=== PATIENT | female | born 1955 | race Caucasian/White ===

== ENCOUNTER 2022-10-10 06:34 | Emergency (ER) | payer MEDICARE ==
[~2022-10-10] VITALS: Ht 157.5 cm; Wt 53.1 kg
--- NOTE | 2022-10-10 07:30 | NUR ---
Patient arrived c/c headache. A/O x 3
[2022-10-10] MEDS ORDERED: ACETAMINOPHEN ES 500 MG TABLET PO ONE (08:30)
--- NOTE | 2022-10-10 08:41 | NUR ---
TAKEN TO CT VIA ANNETTE
[2022-10-10] MEDS ORDERED: ACETAMINOPHEN ES 500 MG TABLET ONE (09:06)
--- NOTE | 2022-10-10 10:44 | NUR ---
Patient discharged to home in stable condition. Written and verbal after care instructions given. Patient verbalizes understanding of instruction.
[2022-10-10 10:46] VITALS: BP 126/86
== END 2022-10-10 10:46 | disposition home or self-care (01) ==
LOC: ER 06:34
DX: R51.9 Headache, unspecified (principal); G89.29 Other chronic pain; F17.200 Nicotine dependence, unspecified, uncomplicated; Z87.820 Personal history of traumatic brain injury; Z90.49 Acquired absence of other specified parts of digestive tract; Z90.710 Acquired absence of both cervix and uterus; Z88.8 Allergy status to other drugs, medicaments and biological substances
CPT/HCPCS: 70450-TC

== ENCOUNTER 2022-10-29 14:53 | Emergency (ER) | payer MEDICARE, OTHER ==
[~2022-10-29] VITALS: Ht 157.5 cm; Wt 54.4 kg
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
[2022-10-29] MEDS ORDERED: diphenhydrAMINE HCL 50 MG/ML VIAL ONE (15:30)
[2022-10-29] MEDS ORDERED: LORAZEPAM INJ 2 MG/ML VIAL IM ONE (15:30)
[2022-10-29] MEDS ORDERED: diphenhydrAMINE HCL 50 MG/ML VIAL IM ONE (15:30)
[2022-10-29] MEDS ORDERED: HALOPERIDOL LACTATE INJ 5 MG/ML VIAL IM ONE (15:30)
[2022-10-29] MEDS ORDERED: LORAZEPAM INJ 2 MG/ML VIAL ONE (15:31)
[2022-10-29] MEDS ORDERED: HALOPERIDOL LACTATE INJ 5 MG/ML VIAL ONE (15:31)
--- NOTE | 2022-10-29 18:25 | NUR ---
sleeping comfortably , no signs and symptoms of distress.
--- NOTE | 2022-10-29 19:34 | NUR ---
REPORT RECEIVED FROM RN VEE. PATIENT FOR DISCHARGE BUT STILL TOO DROWSY D/T MEDS GIVEN AT ER. PATIENT IS ASLEEP BUT AROUSABLE. -CP, -SOB AND NOT IN CP DISTRESS.
--- NOTE | 2022-10-29 19:42 | NUR ---
Note vinny in EDM - 10/29/22 at 1944 by ARISTIDES PATIENT IS CRYING. IN PAIN AT LUMBAR AREA, WITH SCALE OF 10/10. MADE AWARE
--- NOTE | 2022-10-30 00:01 | NUR ---
PATIENT IS STILL SLEEPING BUT AROUSABLE. TO WEAK TO GET UP AND GO HOME. REQUESTING TO STAY ALITTLE BIT TIL MEDICATION WARES OFF.
--- NOTE | 2022-10-30 05:19 | NUR ---
Patient discharged to home in stable condition. Written and verbal after care instructions given. Patient verbalizes understanding of instruction.
[2022-10-30 05:20] VITALS: BP 137/84
== END 2022-10-30 05:20 | disposition home or self-care (01) ==
LOC: ER 14:56
DX: R46.1 Bizarre personal appearance (principal); Z90.49 Acquired absence of other specified parts of digestive tract; Z90.710 Acquired absence of both cervix and uterus; Z88.8 Allergy status to other drugs, medicaments and biological substances
CPT/HCPCS: 99284; 96372 ×2; J2060; J1200; J1630

== ENCOUNTER 2022-12-28 09:16 | Inpatient (IN) | payer MEDICARE, OTHER ==
[~2022-12-28] VITALS: Ht 162.6 cm; Wt 49.4 kg
--- NOTE | 2022-12-28 09:20 | NUR ---
AAOX3 BIBRA 60 from "tiny home" c/o generalized weakness x 3 days. Skin is warm and non diaphoretic. Placed on the monitor, SPO2=56%, placed on simple mask @ 10L/min. Dr King made aware. Resp is even and unlabored with no apparent distress noted. Awaiting md for eval. Will continuously monitor the patient.
--- NOTE | 2022-12-28 09:37 | NUR ---
Dr King at for eval
--- NOTE | 2022-12-28 09:38 | NUR ---
IV ACCESS ESTABLISHED 18G RIGHT AC. BLOOD DRAWN AND SENT TO LAB
[2022-12-28] MEDS ORDERED: NALOXONE HCL 0.4 MG/ML AMPUL ONE (09:44)
--- NOTE | 2022-12-28 09:51 | NUR ---
URINE SAMPLE COLLECTED AND SENT TO LAB
--- NOTE | 2022-12-28 09:56 | NUR ---
RT AT BEDSIDE FOR ABG
[2022-12-28] MEDS ORDERED: NALOXONE HCL 0.4 MG/ML AMPUL IV ONE (10:00)
[2022-12-28] MEDS ORDERED: IV NS 0.9% 1,000 ML BAG IV ONE (10:00)
[2022-12-28 10:03] LABS: BILIRUBIN,URINE 1+ (NEGATIVE); COLOR,URINE YELLOW (YELLOW); LEUKOCYTE ESTERASE ,URINE 2+ (NEGATIVE); NITRITE, URINE NEGATIVE (NEGATIVE); PH,URINE 5.5 (5.0-8.0); PROTEIN,URINE 1+ mg/dl (NEGATIVE); UGLUCOSE TRACE mg/dL (NEGATIVE)
[2022-12-28 10:09] LABS: ABG BASE EXCESS -7.9 mmol/L; ABG PCO2 26.4 mmHg (35.0-45.0); ABG PH 7.392 (7.350-7.450); ABG PO2 80.8 mmHg (75.0-100.0); COHb 0.3 % (0.5-1.5); MetHb 0.3 % (0.0-1.5); O2Hb 94.3 % (94.0-97.0); SITE, ABG Right Radial; VENT MODE, BG SIMPLE MASK
[2022-12-28 10:27] LABS: CARBON DIOXIDE 20 mmol/L (21-32); CHLORIDE 99 mmol/L (98-107); CREATININE 1.9 mg/dL (0.6-1.3); GLUCOSE 134 mg/dL (74-106); POTASSIUM 4.1 mmol/L (3.5-5.1); SODIUM SERUM 133 mmol/L (136-145); UREA NITROGEN, BLOOD 38 mg/dL (7-18)
[2022-12-28 10:33] LABS: ALANINE AMINOTRANSFERASE 35 U/L (12-78); ALBUMIN 2.5 g/dL (3.4-5.0); ALKALINE PHOSPHATASE 143 U/L (46-116); ASPARTATE AMINOTRANSFERASE 38 U/L (15-37); BILIRUBIN,DIRECT 0.1 mg/dL (0.0-0.2); BILIRUBIN,TOTAL 0.2 mg/dL (0.2-1.0); TOTAL PROTEIN, SERUM 7.4 g/dL (6.4-8.2)
[2022-12-28 10:34] LABS: ALCOHOL, BLOOD < 3 mg/dL (0-0)
[2022-12-28 10:41] LABS: BACTERIA,URINE Moderate /HPF (None Seen); RBC,URINE 0-2 /HPF (0-2); SQUAMOUS EPITHELIAL CELL,UR Few /HPF (None Seen)
--- NOTE | 2022-12-28 10:41 | NUR ---
RETURN FROM CT VIA [facility]
[2022-12-28 10:45] LABS: MEAN CORPUSCULAR HGB CONC 31 g/dl (31.0-36.0)
--- NOTE | 2022-12-28 10:48 | NUR ---
COVID SWAB COLLECTED AND SENT TO LAB
[2022-12-28 10:52] LABS: BASOPHILS # (AUTO) 0.1 K/uL (0.0-0.2); BASOPHILS % (AUTO) 0.5 % (0.0-2.0); EOSINOPHILS % (AUTO) 0.1 % (0.0-6.0); HEMATOCRIT 33 % (33-45); LYMPHOCYTES # (AUTO) 1.6 K/uL (0.8-4.8); LYMPHOCYTES % (AUTO) 6.2 % (20.0-44.0); MEAN CORPUSCULAR VOLUME 80 fL (82-100); MONOCYTES # (AUTO) 0.8 K/uL (0.1-1.30); NEUTROPHILS # (AUTO) 23.4 K/uL (1.8-8.9); NEUTROPHILS % (AUTO) 90.2 % (43.0-81.0); PLATELET COUNT (AUTO) 483 K/uL (150-450); RED BLOOD CELL COUNT(AUTO) 4.05 MIL/uL (4.0-5.2)
[2022-12-28] MEDS: CIPROFLOXACIN IV RTU 400 MG in PREMIX 1 EA IV SCH ×2 (11:00→23:45)
[2022-12-28] MEDS ORDERED: LEVO-148 PO (11:29)
[2022-12-28] MEDS ORDERED: ERGO500093 PO (11:29)
[2022-12-28] MEDS ORDERED: FLUO40CA49 PO (11:29)
[2022-12-28] MEDS ORDERED: OMEP40CA21 PO (11:29)
[2022-12-28] MEDS ORDERED: IOHEXOL-350 100 ML VIAL IV ONE (12:08)
[2022-12-28] MEDS ORDERED: IV NS 0.9% 250 ML IV ONE (12:08)
[2022-12-28] MEDS ORDERED: CT SWABBABLE VALVE TRANS SET 1 EA INFUS.SET MC ONE (12:08)
--- NOTE | 2022-12-28 12:12 | NUR ---
TAKEN TO CT VIA ANNETTE
--- NOTE | 2022-12-28 12:20 | NUR ---
CALLED NURSING SUP REGARDING PT BED
--- NOTE | 2022-12-28 12:22 | NUR ---
RETURNED FROM CT VIA [facility]
--- NOTE | 2022-12-28 14:12 | NUR ---
MRI WILL TAKE PT IN 30 MINS
[2022-12-28 15:26] LABS: THYROID STIMULATING HORMONE 0.444 uIU/mL (0.358-3.74)
--- NOTE | 2022-12-28 15:38 | NUR ---
REPORT GIVEN TO MARIE
--- NOTE | 2022-12-28 15:51 | NUR ---
PT TAKEN TO TELE FLOOR WITH ACLS PROTOCOLS IN PLACE
[2022-12-28 16:00] VITALS: BP 144/93
--- NOTE | 2022-12-28 16:00 | NUR ---
NEW ADMISSION PATIENT ARRIVED VIA STRETCHER FROM ER ON SIMPLE MASK 8 LITERS WITHOUT SOB OR DISTRESS. PATIENT HAS RAC G18 INTACT AND PATENT. SKIN IS INTACT. PATIENT IS ON DIAPER. HAD ONE BOWEL MOVEMENT PATIENT CLEANED AND KEPT DRY. CALL LIGHT WITHIN REACH, BED AT LOWEST POSITION, SIDE RAILS UP X2. WILL CARISA THE PATIENT UNTIL END OF ORIN SHIFT.
[2022-12-28] MEDS: BLOOD SUGAR DIAGNOSTIC 1 EACH STRIP IN SCH ×4 (17:30→23:46)
--- NOTE | 2022-12-28 17:30 | NUR ---
RN CLOSING NOTES PATIENT ON NC 4 LITERS WITHOUT SOB OR DISTRESS. PATIENT HAS RAC G18 INTACT RUNNING HEPARIN DRIP 850 UNITS PER HOUR 17ML/HR; PTT ORDERED FRO 6 HOURSE AFITER I STARTED THE HEPARIN INFUSION THE PTT LAB WILL BE DONE AT 0100. SKIN IS INTACT. PATIENT IS ON DIAPER. HAD ONE BOWEL MOVEMENT PATIENT CLEANED AND KEPT DRY. CALL LIGHT WITHIN REACH, BED AT LOWEST POSITION, SIDE RAILS UP X2. PATIENT ALREADY INDORSED TO [facility] BAG LINER NURSE FOR CARISA.
[2022-12-28] MEDS ORDERED: HEPARIN INFUSION/D5W 500 ML IV PRN (18:00)
[2022-12-28] MEDS ORDERED: HEPARIN SODIUM, PORCINE 5000 UNITS/1 ML VIAL IV ONE (18:00)
--- NOTE | 2022-12-28 19:30 | NUR ---
RN NOTES RECEIVED REPORT FROM MORNING RN. PATIENT IN BED A/O X4 ABLE TO MAKE NEEDS KNOWN. ON OXYGEN INHALATION AT 4 LPM SATING 95% NO SOB NOT ON RESPIRATORY DISTRESS BREATHING EVEN AND UNLABORED. WITH IV ACCESS AT RAC # 18 PATENT FLUSHES WELL NO INFILTRATION NOTED RUNNING HEPARIN 1950 UNITS/HR. NO BLEEDING NOTED. ALL SAFETY MEASURES IN PLACE. HOB ELEVATED. CALL LIGHT WITHIN REACH. WILL CLOSELY MONITOR THE PATIENT
[2022-12-28 20:00] VITALS: BP 137/81
[2022-12-28] MEDS: SIMVASTATIN 20 MG TABLET PO SCH (22:08)
[2022-12-28] MEDS ORDERED: LORAZEPAM 0.5 MG TABLET PO PRN (22:30)
[2022-12-28] MEDS ORDERED: CIPROFLOXACIN IV RTU 200 ML IV ONE (23:42)
[2022-12-29] VITALS: BP 135/90
--- NOTE | 2022-12-29 02:27 | NUR ---
RN NOTES PTT 32.6 PER PROTOCOL GIVE BOLUS 3950 UNITS, INCREASE HEPARIN 4 UNITS/KG/JA=045 UNITS/H 1050 FROM 850. NO BLEEDING NOTED. REPEAT PTT @ 0827 AM.
[2022-12-29] MEDS ORDERED: HEPARIN SODIUM, PORCINE 5000 UNITS/1 ML VIAL IV ONE ×2 (02:30→10:30)
[2022-12-29 04:00] VITALS: BP 135/90
[2022-12-29 05:48] LABS: BASOPHILS % (AUTO) 0.2 % (0.0-2.0); EOSINOPHILS % (AUTO) 0.5 % (0.0-6.0); HEMATOCRIT 28 % (33-45); HEMOGLOBIN 8.9 g/dL (11.5-14.8); LYMPHOCYTES # (AUTO) 1.7 K/uL (0.8-4.8); LYMPHOCYTES % (AUTO) 8.9 % (20.0-44.0); MEAN CORPUSCULAR HGB CONC 32 g/dl (31.0-36.0); MEAN CORPUSCULAR VOLUME 78 fL (82-100); MONOCYTES % (AUTO) 5.4 % (2.0-12.0); NEUTROPHILS # (AUTO) 16.2 K/uL (1.8-8.9); PLATELET COUNT (AUTO) 363 K/uL (150-450); RED BLOOD CELL COUNT(AUTO) 3.63 MIL/uL (4.0-5.2)
[2022-12-29] MEDS: BLOOD SUGAR DIAGNOSTIC 1 EACH STRIP IN SCH ×3 (06:13→17:32)
[2022-12-29 06:18] LABS: CALCIUM, SERUM 8.6 mg/dL (8.5-10.1); CREATININE 0.8 mg/dL (0.6-1.3); POTASSIUM 3.3 mmol/L (3.5-5.1)
--- NOTE | 2022-12-29 06:29 | NUR ---
RN NOTES TROPONIN [address] MOREJON WILL WAIT FOR CALL BACK
--- NOTE | 2022-12-29 07:15 | NUR ---
RN OPEN NOTES RECEIVED REPORT FROM PARTS COUNTER SPECIALIST RN. PATIENT IN BED A/O X4 ABLE TO MAKE NEEDS KNOWN. ON OXYGEN INHALATION AT 4 LPM SATING 95% NO SOB NOT ON RESPIRATORY DISTRESS BREATHING EVEN AND UNLABORED. WITH IV ACCESS AT RAC # 18 PATENT FLUSHES WELL NO INFILTRATION NOTED RUNNING HEPARIN 1050 UNITS/HR. NO BLEEDING NOTED. ALL SAFETY MEASURES IN PLACE. HOB ELEVATED. CALL LIGHT WITHIN REACH. WILL CLOSELY MONITOR THE PATIENT
[2022-12-29] MEDS: LEVOTHYROXINE SODIUM 125 MCG TABLET PO SCH (07:21)
[2022-12-29 08:00] VITALS: BP 126/68
[2022-12-29] MEDS: ASPIRIN EC 325 MG TABLET.DR PO SCH (08:06)
[2022-12-29] MEDS ORDERED: POTASSIUM CHLORIDE 10 MEQ TABLET.SA PO ONE (09:00)
[2022-12-29] MEDS ORDERED: HEPARIN SODIUM,PORCINE/PF 50 UNIT/5 ML DISP.SYRIN IV ONE (10:00)
[2022-12-29] MEDS ORDERED: LORAZEPAM INJ 2 MG/ML VIAL IV ONE ×3 (10:00→14:00)
[2022-12-29] MEDS: APIXABAN 5 MG TABLET PO SCH ×2 (10:31→17:03)
--- NOTE | 2022-12-29 11:13 | NUR ---
"SW Consult: SW consult requested for patient possible homelessness, substance abuse, CVA. Patient brought to the hospital due to pneumonia. Patient presents alert and oriented x3 (self,place,situation). Pt appeared to be somewhat disorganized, however, pt was pleasant and cooperative with this underwriter mortgage loan while conducting the assessment. Pt stated she was brought to the hospital due to having a heart situation and having pneumonia. Pt stated that she is single and has no children. 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 She stated that she is homeless and has been living at [facility]. Pt expressed that she has ADHD. Pt stated that she has been diagnosed with depression. SW assessed for suicidal or homicidal, pt denied. SW assessed any hallucinations visual/auditory, pt denied. SW assessed for substance abuse and pt denied. Pt denied any use of drugs. SW offered pt resources and pt was accepting of shelters and substance abuse referrals. SW conducted PHQ9 documented separately. DC PLAN: Pt would want to return back to [facility] located at [address] [place] [phone]; ([phone]). Substance Abuse resources provided included: [facility] Substance Abuse Self-Helpline ([facility]) ; CRI [facility]LP [address] [facility] [place] [phone] ; [facility] [address] [facility] [address] ; [facility] [address] [facility] [address] ; [facility] [address] ; [facility] 6990 [facility] [address] ; [facility] 909 [facility] [address] ; [facility] Substance Abuse Helpline([facility])-[facility] ; [facility] ; [facility] [place]; [facility] [place]; Cri[facility]Help [place]; [facility] [place]нна; [facility]; [facility] [place]; [facility] [place]; [facility], [facility]. [place]; Alcoholics Anonymous -SFV; Qn-Tkir-Oldiamu ; Marijuana Anonymous -SFV; Narcotics Anonymous www.na.org; Shelters: [facility] [place] Provider: [facility] [place] Address: [address] [place], [address] # of Beds: 47 Population Served: [facility] 6 | [facility] Provider: [facility] Last Address: [address] [place] [address], [facility] # of Beds: 66 Population Served: [facility] Provider: First to Serve Address: [address] [facility], [address] # of Beds: 56 Population Served: [facility] [place] Provider: JOVAN/Ms. Justino Drake Address: [address] [place] [address], [address] # of Beds: 49 Population Served: [facility] 8 | [facility] Provider: First to Serve Address: [address] [facility], [address] # of Beds: 37 Population Served: [facility] Hygiene: [facility]: [address] [facility] [place] ; [facility] [address] [facility] [place] ; [facility] [address] [place] [place] . Food Resources: [place] [facility] at [facility]- [address] [place]; Meet Each Need with Dignity ([facility]) [address] [place]; [facility] Food Pantry 6308 [facility]; [facility] 8580 [facility] [place]. Mental Health resources provided: [facility] [address] [place], [place] [address] ; [facility] [address] [facility] [address], [place], [place] [phone] ; [facility] [address] [facility] [place], [place] [id number] ; [facility] [address] [place], [place] 82[address] Healthcare Clinics: [facility] [address] [facility], [address] [place]. [place] ; [facility] [address] [facility] [address] [place] [address]; [facility] [address] [place] [address] [phone] Counseling--[facility] [address] [facility], [address] [place], [place] [address] (Specializes in in-depth psychotherapy for emotional distress: anxiety, depression, interpersonal conflicts, life transitions, childhood abuse) [facility] [address] [place] [address] (Assist with solving problem marital difficulties, separation & divorce, aging parents, & grief, chronic & terminal illness) [facility] [address] [place] [address] (Deal with loss & grief, anxiety, marital difficulties) Homebound/Mental Health Services [address] [facility], [address] [place], [place] [address] (Provide in-home mental services to people who are incapable of leaving their homes) Organization for Needs of the Elderly Senior Service/Resource Center [address] [place] [address] [facility] [address] [place] [address] PSYCHIATRIC OUTPATIENT SERVICES [facility] Partial Hospitalization and Intensive Outpatient Program (Managed Care and [place] Only)[address] [address] [facility] [phone] [facility] Partial Hospitalization and Outpatient [id number] [place], [place] [phone] [facility] [id number] [place], [place] [phone] [facility] Hospital[facility] Partial Hospitalization and Outpatient [id number] [facility] [place] JjLEDGER, [phone] "
--- NOTE | 2022-12-29 11:23 | NUR ---
Social Work Note/PH9 Post Stroke Depression Screening: radiation control worker met with patient and conducted a PHQ-9 (Post Stroke Depression Screening) in which the patient score of a level of 4 for depression. Patient does not require a psychiatric consult at this time.
--- NOTE | 2022-12-29 11:23 | NUR ---
Social Work Stroke Resources: c iron worker met with patient and provided stroke referrals such as: Stroke Family Warmline at (4-004-1-STROKE) and additional information on caring for a stroke survivor ( ). c iron worker also educated patient on the signs of Stroke and to immediately call 911. c iron worker provided education on the signs of stroke and provided educational packet with information: Dietary food, what stroke is, risks, emotional support, finding support, medical management, and effects of stroke.
[2022-12-29 12:00] VITALS: BP 109/57
[2022-12-29] MEDS ORDERED: ONDANSETRON HCL/PF 4 MG/2 ML VIAL IV PRN (12:00)
--- NOTE | 2022-12-29 13:50 | NUR ---
RN NOTE 10 AM ATIVAL WASENT ADMINISTRED DUE TO PATIENT NEEDED IT PRIOR TO MRI .MRI WAS POSTPONE TILL 2 PM
[2022-12-29 16:00] VITALS: BP 128/84
[2022-12-29] MEDS: ENSURE ENLIVE CHOC 237 ML CAN PO SCH (17:23)
--- NOTE | 2022-12-29 18:35 | NUR ---
RN CLOSING NOTES PATIENT ON NC 4 LITERS WITHOUT SOB OR DISTRESS. PATIENT HAS RAC G18 INTACT .HEPARIN WAS INDUSED , PATIENT STARTED ON ELIQUIS ORALLY PATIENT IS ON DIAPER. HAD ONE BOWEL MOVEMENT PATIENT CLEANED AND KEPT DRY. SPEECH EVAL WAS DONE , PATIENR PASSED AND PLACED ON CARDIAC SOFT DIET .ALL MEDICATIONS WERE ADMINISTRED , ALL NEEDS WERE MET CALL LIGHT WITHIN REACH, BED AT LOWEST POSITION, SIDE RAILS UP X2. PATIENT ALREADY INDORSED TO TE FITTING ROOM CHECKER NURSE FOR CARISA.
--- NOTE | 2022-12-29 19:25 | NUR ---
RN NOTES RECEIVED REPORT FROM MORNING RN. PATIENT IN BED A/O X4 ABLE TO MAKE NEEDS KNOWN. ON OXYGEN INHALATION AT 4 LPM SATING 95% NO SOB NOT ON RESPIRATORY DISTRESS BREATHING EVEN AND UNLABORED. WITH IV ACCESS AT RAC # 18 PATENT FLUSHES WELL NO INFILTRATION NOTED . ALL SAFETY MEASURES IN PLACE. HOB ELEVATED. CALL LIGHT WITHIN REACH. WILL CLOSELY MONITOR THE PATIENT
[2022-12-29 20:00] VITALS: BP 121/74
[2022-12-29] MEDS: SIMVASTATIN 20 MG TABLET PO SCH (21:19)
[2022-12-29] MEDS: METOCLOPRAMIDE HCL 10 MG/2 ML VIAL IV SCH (21:19)
[2022-12-30] VITALS: BP 116/74
[2022-12-30] MEDS: BLOOD SUGAR DIAGNOSTIC 1 EACH STRIP IN SCH ×5 (00:32→22:07)
[2022-12-30 04:00] VITALS: BP 115/71
[2022-12-30] MEDS: METOCLOPRAMIDE HCL 10 MG/2 ML VIAL IV SCH ×3 (05:42→21:09)
--- NOTE | 2022-12-30 06:45 | NUR ---
RN NOTES PATIENT REMAINS STABLE NO SIGNIFICANT CHANGES. ALL DUE MEDS GIVEN ORDERED. KEPT CLEAN AND DRY AT ALL TIMES. WILL ENDORSED TO MORNING SHIFT FOR CARISA
[2022-12-30 07:07] LABS: BASOPHILS % (AUTO) 0.1 % (0.0-2.0); EOSINOPHILS % (AUTO) 0.1 % (0.0-6.0); HEMATOCRIT 30 % (33-45); HEMOGLOBIN 9.2 g/dL (11.5-14.8); LYMPHOCYTES # (AUTO) 1.3 K/uL (0.8-4.8); LYMPHOCYTES % (AUTO) 7.8 % (20.0-44.0); MEAN CORPUSCULAR HGB CONC 31 g/dl (31.0-36.0); MEAN CORPUSCULAR VOLUME 79 fL (82-100); MONOCYTES # (AUTO) 1.2 K/uL (0.1-1.30); MONOCYTES % (AUTO) 7.6 % (2.0-12.0); NEUTROPHILS # (AUTO) 13.7 K/uL (1.8-8.9); NEUTROPHILS % (AUTO) 84.4 % (43.0-81.0); PLATELET COUNT (AUTO) 351 K/uL (150-450); RED BLOOD CELL COUNT(AUTO) 3.78 MIL/uL (4.0-5.2); WHITE BLOOD COUNT (AUTO) 16.2 K/uL (4.3-11.0)
--- NOTE | 2022-12-30 07:14 | NUR ---
RN OPEN NOTES PATIENT IN BED SLEEPING ON NC 4 LITERS WITHOUT SOB OR DISTRESS. PATIENT HAS RAC G18 INTACT TKO RUNNING AT 10ML/HR, SR ON MONITOR CALL LIGHT WITHIN REACH, BED AT LOWEST POSITION, SIDE RAILS UP X2. WILL CONTINUE TO MONITOR AND FALLOW POC
[2022-12-30 07:19] LABS: CALCIUM, SERUM 8.8 mg/dL (8.5-10.1); CREATININE 0.6 mg/dL (0.6-1.3); POTASSIUM 3.6 mmol/L (3.5-5.1)
[2022-12-30] MEDS: LEVOTHYROXINE SODIUM 125 MCG TABLET PO SCH (07:19)
[2022-12-30 08:00] VITALS: BP 112/74
[2022-12-30] MEDS: ENSURE ENLIVE CHOC 237 ML CAN PO SCH ×2 (08:00→17:02)
[2022-12-30] MEDS: ASPIRIN EC 325 MG TABLET.DR PO SCH (08:42)
[2022-12-30] MEDS: APIXABAN 5 MG TABLET PO SCH ×2 (08:43→16:13)
[2022-12-30 12:00] VITALS: BP 118/78
[2022-12-30 16:00] VITALS: BP 110/63
--- NOTE | 2022-12-30 18:33 | NUR ---
RN CLOSING NOTES PATIENT ON NC 3 LITERS WITHOUT SOB OR DISTRESS. PATIENT HAS R FORE ARM 22 G INTACT KEPT CLEANED AND KEPT DRY. ABLE TO AMBULATE TO THE BEDSIDE COMMODE SPEECH EVAL ALL MEDICATIONS WERE ADMINISTERED , ALL NEEDS WERE MET CALL LIGHT WITHIN REACH, BED AT LOWEST POSITION, SIDE RAILS UP X2. WILL ENDORSE TO THE WATER TREATMENT PLANT MECHANIC NURSE FOR CARISA.
[2022-12-30 20:00] VITALS: BP 99/56
[2022-12-30] MEDS: SIMVASTATIN 20 MG TABLET PO SCH (21:08)
[2022-12-30] MEDS ORDERED: INSULIN REGULAR, HUMAN 100 UNIT/ML 3 ML VIAL SQ PRN (21:30)
[2022-12-30] MEDS ORDERED: DEXTROSE 50%-WATER 50 ML DISP.SYRIN IV PRN (21:30)
[2022-12-31] VITALS: BP 122/77
[2022-12-31 04:00] VITALS: BP 120/77
[2022-12-31] MEDS: METOCLOPRAMIDE HCL 10 MG/2 ML VIAL IV SCH ×3 (05:35→21:14)
[2022-12-31 05:59] LABS: BASOPHILS % (AUTO) 0.2 % (0.0-2.0); EOSINOPHILS % (AUTO) 0.4 % (0.0-6.0); HEMATOCRIT 29 % (33-45); HEMOGLOBIN 8.9 g/dL (11.5-14.8); LYMPHOCYTES # (AUTO) 1.5 K/uL (0.8-4.8); LYMPHOCYTES % (AUTO) 9.1 % (20.0-44.0); MEAN CORPUSCULAR HGB CONC 31 g/dl (31.0-36.0); MEAN CORPUSCULAR VOLUME 78 fL (82-100); MONOCYTES # (AUTO) 1.3 K/uL (0.1-1.30); MONOCYTES % (AUTO) 7.7 % (2.0-12.0); NEUTROPHILS # (AUTO) 14.1 K/uL (1.8-8.9); NEUTROPHILS % (AUTO) 82.6 % (43.0-81.0); PLATELET COUNT (AUTO) 385 K/uL (150-450); RED BLOOD CELL COUNT(AUTO) 3.68 MIL/uL (4.0-5.2)
[2022-12-31 06:26] LABS: CALCIUM, SERUM 8.9 mg/dL (8.5-10.1); CREATININE 0.5 mg/dL (0.6-1.3); MAGNESIUM 1.9 mg/dL (1.8-2.4); PHOSPHORUS 3.7 mg/dL (2.5-4.9); POTASSIUM 3.4 mmol/L (3.5-5.1)
--- NOTE | 2022-12-31 07:40 | NUR ---
RN OPENING NOTES RECEIVED PATIENT IN BED A/O X4 ABLE TO MAKE NEEDS KNOWN. ON OXYGEN INHALATION AT 3 LPM SATING 98% NO SOB NOT ON RESPIRATORY DISTRESS BREATHING EVEN AND UNLABORED. WITH IV ACCESS AT RFA # 22 PATENT FLUSHES WELL NO INFILTRATION NOTED . ALL SAFETY MEASURES IN PLACE. HOB ELEVATED. CALL LIGHT WITHIN REACH. WILL CLOSELY MONITOR THE PATIENT
[2022-12-31] MEDS: BLOOD SUGAR DIAGNOSTIC 1 EACH STRIP IN SCH ×4 (08:20→22:08)
[2022-12-31] MEDS: ENSURE ENLIVE CHOC 237 ML CAN PO SCH ×2 (08:24→16:54)
[2022-12-31] MEDS: LEVOTHYROXINE SODIUM 125 MCG TABLET PO SCH (08:24)
[2022-12-31] MEDS: ASPIRIN EC 325 MG TABLET.DR PO SCH (09:12)
[2022-12-31] MEDS: APIXABAN 5 MG TABLET PO SCH ×2 (09:26→16:20)
[2022-12-31] MEDS ORDERED: POTASSIUM CHLORIDE 20 MEQ TAB.PRT.SR PO SCH (10:00)
[2022-12-31 11:07] VITALS: BP 116/62
[2022-12-31 13:08] VITALS: BP 121/75
[2022-12-31] MEDS ORDERED: ACETAMINOPHEN 325 MG TABLET PO PRN (16:00)
[2022-12-31 16:10] VITALS: BP 122/78
--- NOTE | 2022-12-31 18:30 | NUR ---
RN CLOSING NOTES PATIENT IN BED A/O X4 ABLE TO MAKE NEEDS KNOWN. ON OXYGEN INHALATION AT 2LPM SATING 96% NO SOB NOT ON RESPIRATORY DISTRESS BREATHING EVEN AND UNLABORED. ON TELE MONITOR WITH CURRENT READING SR 66, WITH IV ACCESS AT RFA #22 SL. CARE RENDERED, DUE MEDS GIVEN. NO SIGNIFICANT CHANGES NOTED ALL THROUGHOUT THE SHIFT. DENIES PAIN/DISCOMFORT AT THIS TIME. VITAL SIGNS REMAINED STABLE. ALL SAFETY MEASURES IN PLACE. HOB ELEVATED. CALL LIGHT WITHIN REACH. ENDORSED TO NIGHT NURSE.
[2022-12-31 20:00] VITALS: BP 120/71
--- NOTE | 2022-12-31 20:30 | NUR ---
RESIDENTIAL SALES EXECUTIVE OPENING NOTES RECEIVED PATIENT IN BED, A/O X 4 AWAKE AND COHERENT. ON MODERATE HIGH BACK REST POSITION. HOOKED TO OXYGEN VIA NASAL CANNULA AT 3LPM SATURATING AT 97% TO TITRATE DOWN O2 WIT TARGET SPO2 OF 90-94%. PATIENT IS CONTINENT USES URINAL AND BEDSIDE COMMODE. ON BED REST FOR NOW, ATTACHED TO TELE MONITORING DEVICE. WIT IV ACCESS AT RFA #22G SL PATENT AND INTACT NO EVIDENCE OF SWELLING OR INFILTRATION AT THIS TIME. LIMIT SEDATIVES MEDICATION FOR NOW. KEPT BED ON LOWER LOCKED POSITION, KEPT SIDE RAILS UP X 2 ALL THE TIME, KEPT CALL LIGHT WITHIN AT REACH. SAFETY PRECAUTIONS MAINTAINED. KEPT PATIENT WARM AND COMFORTABLE.
[2022-12-31] MEDS: SIMVASTATIN 20 MG TABLET PO SCH (21:14)
[2023-01-01] VITALS: BP 134/68
[2023-01-01 04:00] VITALS: BP 141/71
[2023-01-01] MEDS: METOCLOPRAMIDE HCL 10 MG/2 ML VIAL IV SCH (05:07)
--- NOTE | 2023-01-01 06:46 | NUR ---
LINTING MACHINE OPERATOR CLOSING NOTES PATIENT IS IN BED, A/O X 4 AWAKE AND COHERENT. ON MODERATE HIGH BACK REST POSITION. HOOKED TO OXYGEN VIA NASAL CANNULA AT 3LPM SATURATING AT 97% TO TITRATE DOWN O2 WITH TARGET SPO2 OF 90-94%. PATIENT IS CONTINENT BEDSIDE COMMODE. ON BED REST FOR NOW, ATTACHED TO TELE MONITORING DEVICE. WITH IV ACCESS AT RFA #22G SL PATENT AND INTACT NO EVIDENCE OF SWELLING OR INFILTRATION AT THIS TIME.PM CARE RENDERED, ALL DUE MEDICATIONS GIVEN AND TOLERATED BY THE PATIENT. KEPT PATIENT WARM AND COMFORTABLE. LIMIT SEDATIVES MEDICATION FOR NOW. KEPT BED ON LOWER LOCKED POSITION, KEPT SIDE RAILS UP X 2 ALL THE TIME, KEPT CALL LIGHT WITHIN AT REACH. SAFETY PRECAUTIONS MAINTAINED. KEPT PATIENT WARM AND COMFORTABLE. ENDORSED TO NEXT SHIFT FOR CARISA.
[2023-01-01 07:27] LABS: BASOPHILS % (AUTO) 0.2 % (0.0-2.0); EOSINOPHILS % (AUTO) 0.4 % (0.0-6.0); HEMATOCRIT 31 % (33-45); HEMOGLOBIN 9.2 g/dL (11.5-14.8); LYMPHOCYTES # (AUTO) 1.5 K/uL (0.8-4.8); LYMPHOCYTES % (AUTO) 8.2 % (20.0-44.0); MEAN CORPUSCULAR HGB CONC 30 g/dl (31.0-36.0); MEAN CORPUSCULAR VOLUME 81 fL (82-100); MONOCYTES % (AUTO) 5.8 % (2.0-12.0); NEUTROPHILS # (AUTO) 15.3 K/uL (1.8-8.9); NEUTROPHILS % (AUTO) 85.4 % (43.0-81.0); PLATELET COUNT (AUTO) 413 K/uL (150-450); RED BLOOD CELL COUNT(AUTO) 3.82 MIL/uL (4.0-5.2); WHITE BLOOD COUNT (AUTO) 17.9 K/uL (4.3-11.0)
[2023-01-01 07:41] LABS: CREATININE 0.5 mg/dL (0.6-1.3); POTASSIUM 3.4 mmol/L (3.5-5.1)
[2023-01-01] MEDS: BLOOD SUGAR DIAGNOSTIC 1 EACH STRIP IN SCH (07:55)
[2023-01-01] MEDS: ENSURE ENLIVE CHOC 237 ML CAN PO SCH (07:56)
[2023-01-01] MEDS: LEVOTHYROXINE SODIUM 125 MCG TABLET PO SCH (08:09)
[2023-01-01] MEDS: ASPIRIN EC 325 MG TABLET.DR PO SCH (08:10)
[2023-01-01] MEDS: APIXABAN 5 MG TABLET PO SCH (08:11)
[2023-01-01] MEDS ORDERED: POTASSIUM CHLORIDE 20 MEQ TAB.PRT.SR PO SCH (09:00)
[2023-01-01] MEDS ORDERED: IV NS 0.9% 250 ML IV ONE (12:58)
[2023-01-01] MEDS ORDERED: IOHEXOL-350 100 ML VIAL IV ONE (12:58)
[2023-01-01] MEDS ORDERED: CT SWABBABLE VALVE TRANS SET 1 EA INFUS.SET MC ONE (12:58)
[2023-01-01] MEDS ORDERED: ASPI-1169 PO (13:04)
[2023-01-01] MEDS ORDERED: LEVO-148 PO (13:04)
[2023-01-01] MEDS ORDERED: SIMV-46 PO (13:04)
[2023-01-01] MEDS ORDERED: APIX5TAB PO (13:04)
[2023-01-01] MEDS ORDERED: TIOT18CA3 INH (13:05)
[2023-01-01] MEDS ORDERED: ALBU8.5H8 INH (13:05)
--- NOTE | 2023-01-01 13:17 | NUR ---
RN NOTE PATIENT LEFT FOR CT AT THIS TIME WITH TRANSPORTER MAAME VIA WHEELCHAIR
--- NOTE | 2023-01-01 14:27 | NUR ---
RN NOTE PATIENT DISCHARGED HOME. PATIENT A0X4, SIGNED DISCHARGE PACKET AND VERBALIZED UNDERSTANDING OF MEDICATION AND DISCHARGE INSTRUCTIONS. PATIENT BELONGINGS FORM SIGNED AND ACCOUNTED FOR. ID BAND REMOVED, AND IV ACCESS REMOVED NO S/S OF BLEEDING. PATIENT WILL RECEIVE CAB VOUCHER FROM NURSING RAG BALER OFFICE FOR HOME. ACCOMPANIED BY ARICK. ADAME VIA WHEELCHAIR. CHARGE NURSE AWARE.
[2023-01-01] MEDS ORDERED: GLUCERNA SHAKE 237 ML CAN PO SCH (17:00)
== END 2023-01-01 15:02 | disposition home or self-care (01) | DRG 64 ==
LOC: ER 09:50 → TELE1 16:18 → MEDSG1 01-01 10:12
PROVIDERS: ADMIT Nurse Practitioner Acute Care; ATTEND Nurse Practitioner Acute Care
DX: I63.431 Cerebral infarction due to embolism of right posterior cerebral artery (principal); I21.A1 Myocardial infarction type 2; I26.99 Other pulmonary embolism without acute cor pulmonale; N17.0 Acute kidney failure with tubular necrosis; J96.01 Acute respiratory failure with hypoxia; E87.1 Hypo-osmolality and hyponatremia; G93.40 Encephalopathy, unspecified; I63.9 Cerebral infarction, unspecified; Z20.822 Contact with and (suspected) exposure to COVID-19; R29.701 NIHSS score 1; Z90.49 Acquired absence of other specified parts of digestive tract; Z90.710 Acquired absence of both cervix and uterus; Z98.890 Other specified postprocedural states; Z88.1 Allergy status to other antibiotic agents; Z88.5 Allergy status to narcotic agent; Z59.00 Homelessness unspecified; F19.10 Other psychoactive substance abuse, uncomplicated; I48.0 Paroxysmal atrial fibrillation; E03.9 Hypothyroidism, unspecified; M06.9 Rheumatoid arthritis, unspecified; E87.6 Hypokalemia; Z87.891 Personal history of nicotine dependence; I70.0 Atherosclerosis of aorta; J43.9 Emphysema, unspecified
CPT/HCPCS: 36415; 36600; 70450-TC; 70496-TC; 70498-TC; 70551-TC; 71045-TC; 80048-TC; 80061-TC; 80076-TC; 81001; 82550-TC; 82803-TC; 82962-TC; 83605-TC; 83735-TC; 83880; 84100-TC; 84439-TC; 84443-TC; 84481; 84484-TC; 85025-TC; 85378-TC; 85610-TC; 85730-TC; 87081-TC; 87086-TC; 92526; 92611-TC; 93307-TC; 93880-TC; 93970-TC; 97116-TC; 97530-TC; A4216; A4223; A6403; C9803; G0378; G0480; J0744; J1642; J1644; J1815; J2060; J2310; J2765; J7030; J7050; Q9967